=== PATIENT | male | born 1975 | race African-American/Black ===

== ENCOUNTER 2016-07-29 10:29 | Emergency (ER) | payer BC, OTHER ==
[~2016-07-29] VITALS: Ht 172.7 cm; Wt 86.2 kg
--- NOTE | ~2016-07-29 | EKG ---
[address] [address] ELECTROCARDIOGRAM REPORT Name: EDDIE BREWER Room #: [facility]#: [id number] Admission: 07/29/16 Attend Phys: Discharge: 07/29/16 Date of : 79 Report #: [id number] THIS REPORT FOR: //name// [facility] ED Test Date: 2016-07-29 Test Time: 11:26:45 Pat Name: EDDIE BREWER Department: Room: Gender: Polisher Implant: guanako : 1975 Requested By: Rena Kimble Order Number: [id number] MD: Eric Delgadillo Measurements Intervals [place] Rate: 88 P: 40 VA: 146 QRS: -1 QRSD: 92 T: -2 QT: 354 QTc: 429 Interpretive Statements Sinus rhythm No significant abnormality Compared to ECG 10/01/2012 16:32:03 No significant change was found Electronically Signed On 07-29-2016 14:09:51 CDT by Eric Delgadillo [email or web address] <ELECTRONICALLY SIGNED> By: Eric Delgadillo MD, [facility] 07/29/16 1409 [id number] 112 Eric Delgadillo MD, [facility] /EPI
[2016-07-29 11:01] LABS: ABSOLUTE NEUTROPHILS 5.8 thou/uL (1.4-8.2); BASOPHILS 0.7 % (0.0-2.0); EOSINOPHILS 1.4 % (0.0-3.0); HEMATOCRIT 41.7 % (42.0-52.0); HEMOGLOBIN 14.1 gm/dL (14.0-18.0); LYMPHOCYTES 30.2 % (24.0-44.0); MCHC 33.9 g/dL (28.0-37.0); MCV 88.5 fL (80.0-100.0); MONOCYTES 6.3 % (1.0-8.0); PLATELET COUNT 306 thou/uL (150-400); POLYS 61.4 % (36.0-66.0); RBC 4.71 mil/uL (4.50-6.00); WBC 9.5 thou/uL (4.0-11.0)
[2016-07-29 11:02] LABS: MANUAL DIFF NO
[2016-07-29 11:13] LABS: ANION GAP 9 mmol/L (7-16); BUN 18 mg/dL (7-18); CALCIUM 8.8 mg/dL (8.5-10.1); CHLORIDE 108 mmol/L (98-107); CO2 28 mmol/L (21-32); GLUCOSE 104 mg/dL (74-106); POTASSIUM 4.2 mmol/L (3.5-5.1); SODIUM 145 mmol/L (136-145)
[2016-07-29 11:20] LABS: ALBUMIN 3.6 g/dL (3.4-5.0); ALKALINE PHOSPHATASE 59 U/L (46-116); SGOT 22 U/L (15-37); SGPT 30 U/L (30-65); TOTAL BILIRUBIN 0.2 mg/dL (<0.1-1.0); TOTAL PROTEIN 7.5 g/dL (6.4-8.2); TROPONIN-I < 0.04 ng/mL (<0.04-0.07)
[2016-07-29 11:34] LABS: URINE BILIRUBIN NEGATIVE (Negative); URINE BLOOD NEGATIVE (Negative); URINE COLOR YELLOW; URINE GLUCOSE-RANDOM* NEGATIVE (Negative); URINE KETONES NEGATIVE (Negative); URINE NITRITE NEGATIVE (Negative); URINE PROTEIN (DIPSTICK) NEGATIVE (Negative); URINE SPECIFIC GRAVITY 1.025 (1.003-1.035); URINE UROBILINOGEN 0.2 E.U./dl (0.2-1.0)
[2016-07-29] MEDS ORDERED: BEANO300 UNIT PO (12:12)
[2016-07-29 12:29] VITALS: BP 149/89
== END 2016-07-29 12:29 | disposition home or self-care (01) ==
LOC: ER 10:29
PROVIDERS: Physician Assistant
DX: R14.0 Abdominal distension (gaseous) (principal); R06.00 Dyspnea, unspecified; F12.10 Cannabis abuse, uncomplicated; Z86.711 Personal history of pulmonary embolism; Z88.1 Allergy status to other antibiotic agents